=== PATIENT | male | born 1960 | race Caucasian/White ===

== ENCOUNTER 2017-11-19 07:55 | Day surgery (SDC) | payer BC ==
[~2017-11-19 07:55] MED LIST: CEFAZOLIN 1 GM INJ
[2017-11-19] MEDS ORDERED: HYDROmorphONE 1 MG/5 ML IV SYRINGE IV ×3 (09:30)
[2017-11-19] MEDS: BUPIVACAINE 0.5% 30 ML VIAL INJ (09:30)
[2017-11-19] MEDS ORDERED: MEPERIDINE 25 MG INJ IV (09:30)
[2017-11-19] MEDS ORDERED: DIPHENHYDRAMINE 50 MG INJ IV (09:30)
[2017-11-19] MEDS ORDERED: OXYCODONE/ACETAMINOPHEN (5/325) TAB PO (09:30)
[2017-11-19] MEDS ORDERED: ONDANSETRON 4 MG INJ IV (09:30)
[2017-11-19] MEDS ORDERED: PROCHLORPERAZINE 10 MG INJ IV (09:30)
[2017-11-19] MEDS ORDERED: FENTAnyl 50 MCG/ML VIAL IV (09:30)
[2017-11-19] MEDS ORDERED: BUPIVACAINE 0.5% (SDV) 30 ML INJ (09:31)
[2017-11-19] MEDS ORDERED: LIDOCAINE 2% (SDV) 5 ML INJ (09:31)
[2017-11-19] MEDS ORDERED: PROPOFOL 20 ML (09:31)
[2017-11-19] MEDS ORDERED: MIDAZOLAM 1 MG/ML 2 ML INJ (09:31)
[2017-11-19] MEDS ORDERED: DEXAMETHASONE 4 MG/ML 1 ML INJ ×2 (09:31→09:43)
[2017-11-19] MEDS ORDERED: FENTAnyl 50 MCG/ML VIAL (09:43)
[2017-11-19] MEDS ORDERED: ONDANSETRON 4 MG INJ (09:43)
[2017-11-19] MEDS ORDERED: FAMOTIDINE 20 MG INJ (09:43)
[2017-11-19] MEDS ORDERED: ACETAMINOPHEN 1000MG/100ML IV 100 ML (09:55)
[2017-11-19] MEDS ORDERED: oxyCODONE 5 MG TAB PO (12:00)
== END 2017-11-19 12:35 | disposition home or self-care (01) ==
LOC: SDS 07:55
DX: M20.11 Hallux valgus (acquired), right foot (principal); M21.611 Bunion of right foot; I25.10 Atherosclerotic heart disease of native coronary artery without angina pectoris; E78.5 Hyperlipidemia, unspecified; I10 Essential (primary) hypertension; I25.2 Old myocardial infarction
CPT/HCPCS: 28299; 88304; 88311